=== PATIENT | female | born 1960 | race Caucasian/White ===

== ENCOUNTER 2019-03-03 12:34 | Emergency (ER) | payer MEDICARE ==
[2019-03-03] MEDS ORDERED: DIAZEPAM 5 MG TABLET ONE (13:01)
[2019-03-03] MEDS ORDERED: LIDOCAINE 5% TOPICAL PATCH TP ONE (13:01)
[2019-03-03] MEDS ORDERED: KETOROLAC TROMETHAMINE 60 MG/2 ML VIAL ONE (13:01)
== END 2019-03-03 14:46 | disposition home or self-care (01) ==
LOC: EDH 12:34
DX: S39.012A Strain of muscle, fascia and tendon of lower back, initial encounter (principal); E11.9 Type 2 diabetes mellitus without complications; F32.9 Major depressive disorder, single episode, unspecified; L93.0 Discoid lupus erythematosus; Z88.8 Allergy status to other drugs, medicaments and biological substances; X50.0XXA Overexertion from strenuous movement or load, initial encounter; Y93.89 Activity, other specified; Y92.89 Other specified places as the place of occurrence of the external cause; Y99.8 Other external cause status
CPT/HCPCS: 96372; 99283; J1885

== ENCOUNTER 2019-03-06 10:41 | Emergency (ER) | payer OTHER, MEDICARE | END 2019-03-06 11:11 | disposition home or self-care (01) | LOC: EDH 10:41 | DX: M54.16 Radiculopathy, lumbar region (principal); M25.562 Pain in left knee; F32.9 Major depressive disorder, single episode, unspecified; Z90.49 Acquired absence of other specified parts of digestive tract; Z90.710 Acquired absence of both cervix and uterus; Z98.890 Other specified postprocedural states; Z88.8 Allergy status to other drugs, medicaments and biological substances ==

== ENCOUNTER 2019-03-19 23:16 | Emergency (ER) | payer OTHER, MEDICARE ==
[2019-03-20] MEDS ORDERED: FAMOTIDINE 20MG TAB 20 MG TAB ONE (00:21)
[2019-03-20] MEDS ORDERED: KETOROLAC TROMETHAMINE 60 MG/2 ML VIAL ONE (00:22)
[2019-03-20] MEDS ORDERED: PREDNISONE 20 MG TABLET ONE (00:22)
[2019-03-20] MEDS ORDERED: LIDOCAINE 5% TOPICAL PATCH TP ONE (00:22)
[2019-03-20] MEDS ORDERED: ORPHENADRINE CITRATE 30 MG/ML ML ONE (00:22)
== END 2019-03-20 01:37 | disposition home or self-care (01) ==
LOC: EDH 23:16
DX: M62.830 Muscle spasm of back (principal); M25.511 Pain in right shoulder; E11.9 Type 2 diabetes mellitus without complications; F32.9 Major depressive disorder, single episode, unspecified; Z90.49 Acquired absence of other specified parts of digestive tract; Z90.710 Acquired absence of both cervix and uterus; Z72.0 Tobacco use; Z88.8 Allergy status to other drugs, medicaments and biological substances; Z79.899 Other long term (current) drug therapy
CPT/HCPCS: 93005; 96372 ×2; 99284; J1885; J2360

== ENCOUNTER 2019-04-02 18:45 | Emergency (ER) | payer OTHER, MEDICARE ==
[2019-04-02 19:34] LABS: BASOPHILS % (AUTO) 0.6 % (0.0-5.0); EOSINOPHILS % (AUTO) 2.1 % (0.0-8.0); HEMATOCRIT 38.7 % (36-48); LYMPHOCYTES % (AUTO) 25.5 % (21.0-51.0); MEAN CORPUSCULAR HEMOGLOBIN 30.6 pg (27.0-33.0); MEAN CORPUSCULAR HGB CONC 32.8 g/dL (32.0-36.0); MEAN CORPUSCULAR VOLUME 93.3 fL (79-99); MONOCYTES % (AUTO) 5.8 % (3.0-13.0); NEUTROPHILS % (AUTO) 65.7 % (40.0-77.0); PLATELET COUNT (AUTO) 307 K/uL (130-400); RED BLOOD CELL COUNT(AUTO) 4.15 MIL/uL (4.00-5.50); RED CELL DISTRIBUTION WIDTH 13.1 % (11.0-15.5); WHITE BLOOD COUNT (AUTO) 11.5 K/uL (4.8-10.8)
[2019-04-02 19:36] LABS: CREATININE 0.8 mg/dL (0.5-1.5); POTASSIUM 3.7 mmol/L (3.5-5.1)
[2019-04-02] MEDS ORDERED: ONDANSETRON HCL 4 MG/2 ML VIAL ONE (19:36)
[2019-04-02] MEDS ORDERED: MORPHINE SULFATE 4 MG/1ML SYG ONE (19:36)
[2019-04-02 19:40] LABS: ALBUMIN 4.2 g/dL (3.5-5.0); BILIRUBIN,TOTAL 0.2 mg/dL (0.2-1.0); TOTAL PROTEIN, SERUM 7.5 g/dL (6.0-8.3)
[2019-04-02 19:56] LABS: APPEARANCE,URINE Clear (CLEAR); BILIRUBIN,URINE Negative (NEGATIVE); COLOR,URINE Yellow (YELLOW); GLUCOSE, URINE (UA) Negative (NEGATIVE); KETONES,URINE 15 mg/dL (NEGATIVE); LEUKOCYTE ESTERASE ,URINE Small (NEGATIVE); NITRATE,URINE Negative (NEGATIVE); OCCULT BLOOD,URINE Negative (NEGATIVE); PROTEIN,URINE Negative (NEGATIVE); UROBILINOGEN,URINE 0.2 mg/dL (0.2-1.0)
[2019-04-02 20:05] LABS: AMPHET/METH SCREEN,URINE POSITIVE (NEGATIVE); BARBITURATE SCREEN, URINE NEGATIVE (NEGATIVE); BENZODIAZEPINES SCREEN,URINE NEGATIVE (NEGATIVE); CANNABINOID SCREEN,URINE NEGATIVE (NEGATIVE); COCAINE SCREEN,URINE NEGATIVE (NEGATIVE); OPIATE SCREEN,URINE NEGATIVE (NEGATIVE); PHENCYCLIDINE SCREEN,URINE NEGATIVE (NEGATIVE)
[2019-04-02 20:06] LABS: BACTERIA,URINE Many /HPF (None Seen); RBC,URINE None Seen /HPF (0-1)
== END 2019-04-02 20:58 | disposition home or self-care (01) ==
LOC: EDH 18:45
DX: S39.011A Strain of muscle, fascia and tendon of abdomen, initial encounter (principal); M54.5 Low back pain; E11.9 Type 2 diabetes mellitus without complications; F32.9 Major depressive disorder, single episode, unspecified; M32.9 Systemic lupus erythematosus, unspecified; Z90.49 Acquired absence of other specified parts of digestive tract; Z90.710 Acquired absence of both cervix and uterus; Z88.1 Allergy status to other antibiotic agents; Z88.8 Allergy status to other drugs, medicaments and biological substances; X50.0XXA Overexertion from strenuous movement or load, initial encounter; Y93.89 Activity, other specified; Y92.89 Other specified places as the place of occurrence of the external cause; Y99.8 Other external cause status
CPT/HCPCS: 36415; 74176; 80053; 80305; 81001; 83690; 85025; 96374; 96375; 99285; J2270; J2405

== ENCOUNTER 2020-08-16 13:27 | Emergency (ER) | payer OTHER, MEDICARE ==
[2020-08-16] MEDS ORDERED: KETOROLAC TROMETHAMINE 30MG/ML ONE (14:01)
[2020-08-16] MEDS ORDERED: DEXAMETHASONE SOD PHOSPHATE 10MG/ML 1ML VIAL ONE (14:01)
[2020-08-16] MEDS ORDERED: HYDROCODONE/ACETAMINOPHEN 5/325 MG TAB ONE (14:01)
== END 2020-08-16 14:21 | disposition home or self-care (01) ==
LOC: EDH 13:27
DX: M54.5 Low back pain (principal); Z88.1 Allergy status to other antibiotic agents; Z88.8 Allergy status to other drugs, medicaments and biological substances; Z72.0 Tobacco use
CPT/HCPCS: 96372 ×2; 99284; J1100; J1885

== ENCOUNTER 2020-09-02 02:12 | Emergency (ER) | payer OTHER, MEDICARE ==
[~2020-09-02 02:12] MED LIST: CEPH500B PO; FLUC100T8 PO; METF-444 PO; METR500T PO; ORPH-43 PO
[2020-09-02] MEDS ORDERED: CLINDAMYCIN HCL 150 MG CAP ONE (02:56)
== END 2020-09-02 03:02 | disposition home or self-care (01) ==
LOC: EDH 02:12
DX: L02.91 Cutaneous abscess, unspecified (principal); E11.9 Type 2 diabetes mellitus without complications; Z90.49 Acquired absence of other specified parts of digestive tract; Z90.710 Acquired absence of both cervix and uterus; Z98.890 Other specified postprocedural states; Z88.1 Allergy status to other antibiotic agents
CPT/HCPCS: 87070; 87076

== ENCOUNTER 2020-10-25 07:05 | Emergency (ER) | payer OTHER, MEDICARE ==
[~2020-10-25] VITALS: Ht 167.6 cm; Wt 77.1 kg
[2020-10-25 07:07] VITALS: BP 137/79
[2020-10-25 08:10] LABS: BASOPHILS % (AUTO) 0.9 % (0.0-5.0); EOSINOPHILS % (AUTO) 2.9 % (0.0-8.0); HEMATOCRIT 41.9 % (36-48); LYMPHOCYTES % (AUTO) 21.7 % (21.0-51.0); MEAN CORPUSCULAR HEMOGLOBIN 31.5 pg (27.0-33.0); MEAN CORPUSCULAR HGB CONC 32.9 g/dL (32.0-36.0); MEAN CORPUSCULAR VOLUME 95.7 fL (79-99); MONOCYTES % (AUTO) 6.2 % (3.0-13.0); PLATELET COUNT (AUTO) 295 K/uL (130-400); RED BLOOD CELL COUNT(AUTO) 4.38 MIL/uL (4.00-5.50); RED CELL DISTRIBUTION WIDTH 13.2 % (11.0-15.5); WHITE BLOOD COUNT (AUTO) 9.8 K/uL (4.8-10.8)
[2020-10-25 08:20] LABS: AMPHET/METH SCREEN,URINE NEGATIVE (NEGATIVE); BARBITURATE SCREEN, URINE NEGATIVE (NEGATIVE); BENZODIAZEPINES SCREEN,URINE NEGATIVE (NEGATIVE); CANNABINOID SCREEN,URINE NEGATIVE (NEGATIVE); COCAINE SCREEN,URINE NEGATIVE (NEGATIVE); OPIATE SCREEN,URINE NEGATIVE (NEGATIVE); PHENCYCLIDINE SCREEN,URINE NEGATIVE (NEGATIVE)
[2020-10-25 08:29] LABS: ALBUMIN 3.7 g/dL (3.5-5.0); BILIRUBIN,TOTAL 0.2 mg/dL (0.2-1.0); CREATININE 0.8 mg/dL (0.5-1.5); MAGNESIUM 2.1 mg/dL (1.80-2.40); POTASSIUM 3.9 mmol/L (3.5-5.1); TOTAL PROTEIN, SERUM 7.4 g/dL (6.0-8.3)
[2020-10-25] MEDS ORDERED: FLUCONAZOLE 100 MG TAB PO SCH (09:30)
[2020-10-25 09:55] VITALS: BP 135/79
[2020-10-25] MEDS ORDERED: FLUC150T PO (10:11)
== END 2020-10-25 10:14 | disposition home or self-care (01) ==
LOC: EDH 07:05
DX: M94.0 Chondrocostal junction syndrome [Tietze] (principal); B37.0 Candidal stomatitis; E11.9 Type 2 diabetes mellitus without complications; F41.9 Anxiety disorder, unspecified; Z79.84 Long term (current) use of oral hypoglycemic drugs; Z88.1 Allergy status to other antibiotic agents
CPT/HCPCS: 36415; 71045; 80053; 80305; 83735; 84484; 85025; 93005

== ENCOUNTER 2020-12-09 13:48 | Emergency (ER) | payer OTHER, MEDICARE ==
[~2020-12-09 13:48] MED LIST changes: +FLUC150T PO
== END 2020-12-09 13:50 | disposition left against medical advice (07) ==
LOC: EDH 13:48
DX: M54.9 Dorsalgia, unspecified (principal); Z53.21 Procedure and treatment not carried out due to patient leaving prior to being seen by health care provider

== ENCOUNTER 2021-01-25 12:11 | Observation (INO) | payer OTHER, MEDICARE ==
[~2021-01-25] VITALS: Ht 165.1 cm; Wt 72.6 kg
[2021-01-25] MEDS ORDERED: NITROGLYCERIN 1GM OINT 1 INCH/1GM TD SCH (13:00)
[2021-01-25 13:01] LABS: BASOPHILS % (AUTO) 0.8 % (0.0-5.0); EOSINOPHILS % (AUTO) 2.7 % (0.0-8.0); HEMATOCRIT 40.8 % (36-48); LYMPHOCYTES % (AUTO) 23.5 % (21.0-51.0); MEAN CORPUSCULAR HEMOGLOBIN 31.8 pg (27.0-33.0); MEAN CORPUSCULAR HGB CONC 34.3 g/dL (32.0-36.0); MEAN CORPUSCULAR VOLUME 92.7 fL (79-99); MONOCYTES % (AUTO) 6.7 % (3.0-13.0); NEUTROPHILS % (AUTO) 65.9 % (40.0-77.0); PLATELET COUNT (AUTO) 319 K/uL (130-400); RED CELL DISTRIBUTION WIDTH 13.2 % (11.0-15.5); WHITE BLOOD COUNT (AUTO) 9.8 K/uL (4.8-10.8)
[2021-01-25 13:10] LABS: CREATININE 0.9 mg/dL (0.5-1.5); POTASSIUM 4.4 mmol/L (3.5-5.1)
[2021-01-25 13:15] LABS: ALBUMIN 3.9 g/dL (3.5-5.0); BILIRUBIN,TOTAL 0.1 mg/dL (0.2-1.0); TOTAL PROTEIN, SERUM 7.7 g/dL (6.0-8.3)
[2021-01-25 13:24] LABS: APPEARANCE,URINE Cloudy (CLEAR); BILIRUBIN,URINE Negative (NEGATIVE); COLOR,URINE Yellow (YELLOW); GLUCOSE, URINE (UA) Negative (NEGATIVE); KETONES,URINE Negative (NEGATIVE); LEUKOCYTE ESTERASE ,URINE Negative (NEGATIVE); NITRATE,URINE Negative (NEGATIVE); OCCULT BLOOD,URINE Negative (NEGATIVE); PH,URINE 6.5 (5.0-8.0); PROTEIN,URINE Negative (NEGATIVE); UROBILINOGEN,URINE 0.2 mg/dL (0.2-1.0)
[2021-01-25 13:59] LABS: BACTERIA,URINE Rare /HPF (None Seen); MUCUS,URINE Rare LPF (None Seen); RBC,URINE 0-1 /HPF (0-1); SQUAMOUS EPITHELIAL CELL,UR Moderate /HPF (0-2); WBC,URINE 0-1 /HPF (0-1)
[2021-01-25] MEDS: NITROGLYCERIN 1GM OINT 1 INCH/1GM TD SCH ×2 (14:30→20:20)
[2021-01-25] MEDS ORDERED: DIPHENHYDRAMINE HCL 25 MG CAPSULE PO PRN (14:30)
[2021-01-25] MEDS ORDERED: ACETAMINOPHEN WITH CODEINE 1 TAB TAB PO PRN (14:30)
[2021-01-25] MEDS ORDERED: ACETAMINOPHEN 325 MG TAB PO PRN ×2 (14:30)
[2021-01-25] MEDS ORDERED: ZOLPIDEM TARTRATE 5 MG TAB PO PRN (14:30)
[2021-01-25] MEDS ORDERED: NITROGLYCERIN 0.4 MG SL TAB SL PRN (14:30)
[2021-01-25] MEDS ORDERED: DiphenhydrAMINE HCL 50 MG/ML VIAL IV PRN (14:30)
[2021-01-25 14:59] LABS: CREATINE KINASE, TOTAL 28 U/L (21-232); MYOGLOBIN 16 ng/mL (10-92)
[2021-01-25 16:36] VITALS: BP 124/69
[2021-01-25] MEDS: ONDANSETRON 4MG INJ IV PRN ×2 (16:49→18:17)
[2021-01-25] MEDS: METOPROLOL SUCCINATE 50 MG TAB.SR.24H PO SCH (17:22)
[2021-01-25] MEDS ORDERED: PRASUGREL HCL 10 MG TABLET PO SCH (18:00)
[2021-01-25] MEDS ORDERED: ASPIRIN 325MG EC TAB PO ONE (18:00)
[2021-01-25] MEDS: METOPROLOL TARTRATE 25 MG TAB PO SCH (19:30)
[2021-01-25 19:55] VITALS: BP 120/78
[2021-01-25] MEDS: FAMOTIDINE 20MG TAB PO SCH (20:19)
[2021-01-25 23:33] VITALS: BP 94/60
[2021-01-26] VITALS (11 sets, daily range): BP systolic 90–128; BP diastolic 41–62
[2021-01-26] MEDS ORDERED: MORPHINE 2 MG SYG ONE (00:40)
[2021-01-26] MEDS ORDERED: MORPHINE 2 MG SYG IVP ONE (01:00)
[2021-01-26 04:41] LABS: EOSINOPHILS % (AUTO) 3.7 % (0.0-8.0); HEMATOCRIT 38.1 % (36-48); LYMPHOCYTES % (AUTO) 35.1 % (21.0-51.0); MEAN CORPUSCULAR HEMOGLOBIN 31.4 pg (27.0-33.0); MEAN CORPUSCULAR HGB CONC 33.3 g/dL (32.0-36.0); MEAN CORPUSCULAR VOLUME 94.3 fL (79-99); MONOCYTES % (AUTO) 7.6 % (3.0-13.0); NEUTROPHILS % (AUTO) 52.1 % (40.0-77.0); PLATELET COUNT (AUTO) 308 K/uL (130-400); RED BLOOD CELL COUNT(AUTO) 4.04 MIL/uL (4.00-5.50); RED CELL DISTRIBUTION WIDTH 13.3 % (11.0-15.5); WHITE BLOOD COUNT (AUTO) 11.1 K/uL (4.8-10.8)
[2021-01-26 04:57] LABS: INR 1.01 (0.85-1.15)
[2021-01-26 04:59] LABS: PARTIAL THROMBOPLASTIN TIME 27.3 SEC (26.3-35.5)
[2021-01-26 05:09] LABS: ALBUMIN 3.4 g/dL (3.5-5.0); BILIRUBIN,TOTAL 0.2 mg/dL (0.2-1.0); CREATININE 0.9 mg/dL (0.5-1.5); POTASSIUM 4.3 mmol/L (3.5-5.1); TOTAL PROTEIN, SERUM 6.7 g/dL (6.0-8.3)
[2021-01-26] MEDS: NITROGLYCERIN 1GM OINT 1 INCH/1GM TD SCH ×3 (05:58→22:30)
[2021-01-26] MEDS: PRASUGREL HCL 10 MG TABLET PO SCH (09:13)
[2021-01-26] MEDS: ASPIRIN 81 MG EC TAB PO SCH (09:13)
[2021-01-26] MEDS: METOPROLOL SUCCINATE 50 MG TAB.SR.24H PO SCH (09:13)
[2021-01-26] MEDS: FAMOTIDINE 20MG TAB PO SCH ×2 (09:14→20:26)
[2021-01-26] MEDS: ENOXAPARIN SODIUM 30 MG/0.3 ML SQ SCH (09:14)
[2021-01-26] MEDS: METOPROLOL TARTRATE 25 MG TAB PO SCH ×2 (09:14→20:22)
[2021-01-26] MEDS ORDERED: BIVALIRUDIN 250 MG/VIAL IV ONE (14:22)
[2021-01-26] MEDS ORDERED: IOHEXOL 350 MG/ML 100ML INFUS..BTL IV ONE (14:22)
[2021-01-26] MEDS ORDERED: NITROGLYCERIN 2 MG VIAL IV ONE (14:22)
[2021-01-26] MEDS ORDERED: LIDOCAINE HCL 400MG/20ML VIAL ONE (14:22)
[2021-01-26] MEDS ORDERED: IOHEXOL-350 50ML VIAL IV ONE (14:22)
[2021-01-26] MEDS ORDERED: SODIUM BICARB 50MEQ 50ML VIAL 50 ML ONE (15:07)
[2021-01-26] MEDS ORDERED: MIDAZOLAM HCL 1 MG/ML 2ML VIAL ONE (15:19)
[2021-01-26] MEDS ORDERED: FENTANYL CITRATE PF 50 MCG/1 ML 2ML VIAL ONE (15:19)
[2021-01-26] MEDS ORDERED: 0.9%NACL 1000ML 1,000 ML IV SCH (16:30)
[2021-01-27 00:04] VITALS: BP 98/47
[2021-01-27 04:04] VITALS: BP 96/52
[2021-01-27] MEDS: NITROGLYCERIN 1GM OINT 1 INCH/1GM TD SCH (04:08)
[2021-01-27 05:30] LABS: BASOPHILS % (AUTO) 1.1 % (0.0-5.0); LYMPHOCYTES % (AUTO) 25.2 % (21.0-51.0); MEAN CORPUSCULAR HEMOGLOBIN 32.2 pg (27.0-33.0); MEAN CORPUSCULAR HGB CONC 33.2 g/dL (32.0-36.0); MEAN CORPUSCULAR VOLUME 97.2 fL (79-99); MONOCYTES % (AUTO) 7.2 % (3.0-13.0); NEUTROPHILS % (AUTO) 63.2 % (40.0-77.0); PLATELET COUNT (AUTO) 258 K/uL (130-400); RED BLOOD CELL COUNT(AUTO) 3.91 MIL/uL (4.00-5.50); RED CELL DISTRIBUTION WIDTH 13.3 % (11.0-15.5); WHITE BLOOD COUNT (AUTO) 9.7 K/uL (4.8-10.8)
[2021-01-27 05:48] LABS: CREATININE 0.7 mg/dL (0.5-1.5); POTASSIUM 3.8 mmol/L (3.5-5.1)
[2021-01-27] MEDS ORDERED: ASPI-1005 PO (07:07)
[2021-01-27] MEDS ORDERED: METO-408 PO (07:07)
[2021-01-27 07:57] VITALS: BP 107/45
[2021-01-27] MEDS: METOPROLOL SUCCINATE 50 MG TAB.SR.24H PO SCH (09:00)
[2021-01-27] MEDS: PRASUGREL HCL 10 MG TABLET PO SCH (10:01)
[2021-01-27] MEDS: FAMOTIDINE 20MG TAB PO SCH (10:01)
[2021-01-27] MEDS: METOPROLOL TARTRATE 25 MG TAB PO SCH (10:02)
[2021-01-27] MEDS: ASPIRIN 81 MG EC TAB PO SCH (10:05)
[2021-01-27] MEDS: ENOXAPARIN SODIUM 30 MG/0.3 ML SQ SCH (10:05)
== END 2021-01-27 12:59 | disposition home or self-care (01) ==
LOC: EDH 12:11 → EDHIP 14:06 → 3AH 15:45
PROVIDERS: ADMIT Internal Medicine; ATTEND Internal Medicine
DX: I24.9 Acute ischemic heart disease, unspecified (principal); Z20.822 Contact with and (suspected) exposure to COVID-19; I10 Essential (primary) hypertension; E11.9 Type 2 diabetes mellitus without complications; E78.5 Hyperlipidemia, unspecified; E78.00 Pure hypercholesterolemia, unspecified; R11.2 Nausea with vomiting, unspecified; R61 Generalized hyperhidrosis; R07.89 Other chest pain; F17.210 Nicotine dependence, cigarettes, uncomplicated; Z79.84 Long term (current) use of oral hypoglycemic drugs; Z90.710 Acquired absence of both cervix and uterus; Z98.891 History of uterine scar from previous surgery; Z79.899 Other long term (current) drug therapy; Z98.890 Other specified postprocedural states; Z79.82 Long term (current) use of aspirin; Z90.49 Acquired absence of other specified parts of digestive tract
CPT/HCPCS: 36415 ×3; 71045; 80048; 80053 ×2; 80061; 81001; 82550 ×3; 82948 ×6; 83036; 83735; 83874 ×3; 83880; 84484 ×4; 85025 ×3; 85610; 85730; 87635; 93005 ×4; 93458; 96361; 96372 ×2; 96374; 96376; 99285; C1760; C1894 ×2; G0378 ×44; J1644; J1650 ×2; J2250; J2405; J3010; J3490 ×3; Q9965; Q9967 ×2; 99156; 99157; J0583

== ENCOUNTER 2021-02-06 09:06 | Emergency (ER) | payer OTHER, MEDICARE ==
[~2021-02-06] VITALS: Ht 165.1 cm; Wt 72.6 kg
[~2021-02-06 09:06] MED LIST changes: +ASPI-1005 PO; -CEPH500B PO; -FLUC100T8 PO; -FLUC150T PO; +METO-408 PO; -METR500T PO
[2021-02-06] MEDS ORDERED: TRAMADOL HCL 50 MG TABLET PO ONE (09:30)
[2021-02-06 09:44] VITALS: BP 126/75
[2021-02-06 09:52] LABS: HEMATOCRIT 37.6 % (36-48); MEAN CORPUSCULAR HEMOGLOBIN 31.7 pg (27.0-33.0); MEAN CORPUSCULAR HGB CONC 33.8 g/dL (32.0-36.0); MEAN CORPUSCULAR VOLUME 93.8 fL (79-99); PLATELET COUNT (AUTO) 289 K/uL (130-400); RED BLOOD CELL COUNT(AUTO) 4.01 MIL/uL (4.00-5.50); RED CELL DISTRIBUTION WIDTH 13.5 % (11.0-15.5); WHITE BLOOD COUNT (AUTO) 8.9 K/uL (4.8-10.8)
[2021-02-06 10:00] LABS: CREATININE 0.9 mg/dL (0.5-1.5); POTASSIUM 4.5 mmol/L (3.5-5.1)
[2021-02-06] MEDS ORDERED: IBUP-2077 PO (10:47)
[2021-02-06] MEDS ORDERED: CEPH500B PO (10:47)
[2021-02-06 11:10] LABS: BASOPHILS % (MANUAL) 3 % (0-2); EOSINOPHILS % (MANUAL) 4 % (1-6); LYMPHOCYTES % (MANUAL) 40 % (22-44); MAN.DIFF COMMENT-IMPRESSION MANUAL DIFFERENTIAL; MONOCYTES % (MANUAL) 6 % (2-9); PLATELET MORPHOLOGY COMMENT ADEQUATE; REACTIVE LYMPHOCYTES 2 % (0-0); SEGMENTED NEUTROPHILS % 45 % (40-70)
== END 2021-02-06 10:55 | disposition home or self-care (01) ==
LOC: EDH 09:06
DX: R10.30 Lower abdominal pain, unspecified (principal); E11.9 Type 2 diabetes mellitus without complications; I72.4 Aneurysm of artery of lower extremity; L02.91 Cutaneous abscess, unspecified; I10 Essential (primary) hypertension; F17.200 Nicotine dependence, unspecified, uncomplicated; Z79.1 Long term (current) use of non-steroidal anti-inflammatories (NSAID); Z79.82 Long term (current) use of aspirin; Z79.84 Long term (current) use of oral hypoglycemic drugs; Z79.899 Other long term (current) drug therapy
CPT/HCPCS: 36415; 76882; 80048; 85025

== ENCOUNTER 2021-06-13 08:20 | Emergency (ER) | payer OTHER, MEDICARE ==
[~2021-06-13] VITALS: Ht 167.6 cm; Wt 77.1 kg
[~2021-06-13 08:20] MED LIST changes: +CEPH500B PO; +IBUP-2077 PO
[2021-06-13 08:39] LABS: APPEARANCE,URINE CLEAR (CLEAR); BILIRUBIN,URINE NEGATIVE (NEGATIVE); COLOR,URINE YELLOW (YELLOW); GLUCOSE, URINE (UA) 250 mg/dL (NEGATIVE); KETONES,URINE NEGATIVE (NEGATIVE); LEUKOCYTE ESTERASE ,URINE NEGATIVE (NEGATIVE); NITRATE,URINE NEGATIVE (NEGATIVE); OCCULT BLOOD,URINE NEGATIVE (NEGATIVE); PROTEIN,URINE NEGATIVE (NEGATIVE); UROBILINOGEN,URINE 0.2 mg/dL (0.2-1.0)
[2021-06-13 08:46] LABS: BASOPHILS % (AUTO) 0.3 % (0.0-5.0); EOSINOPHILS % (AUTO) 0.3 % (0.0-8.0); HEMATOCRIT 41.9 % (36-48); LYMPHOCYTES % (AUTO) 17.8 % (21.0-51.0); MEAN CORPUSCULAR HEMOGLOBIN 31.5 pg (27.0-33.0); MEAN CORPUSCULAR HGB CONC 33.7 g/dL (32.0-36.0); MEAN CORPUSCULAR VOLUME 93.5 fL (79-99); MONOCYTES % (AUTO) 5.5 % (3.0-13.0); NEUTROPHILS % (AUTO) 75.7 % (40.0-77.0); PLATELET COUNT (AUTO) 303 K/uL (130-400); RED BLOOD CELL COUNT(AUTO) 4.48 MIL/uL (4.00-5.50); RED CELL DISTRIBUTION WIDTH 13.2 % (11.0-15.5); WHITE BLOOD COUNT (AUTO) 16.6 K/uL (4.8-10.8)
[2021-06-13 09:01] LABS: BILIRUBIN,TOTAL 0.2 mg/dL (0.2-1.0); CREATININE 0.6 mg/dL (0.5-1.5); TOTAL PROTEIN, SERUM 7.6 g/dL (6.0-8.3)
[2021-06-13 09:06] LABS: BACTERIA,URINE Rare /HPF (None Seen); RBC,URINE 0-1 /HPF (0-1); SQUAMOUS EPITHELIAL CELL,UR Few /HPF (0-2); WBC,URINE 0-1 /HPF (0-1)
[2021-06-13] MEDS ORDERED: DIAZEPAM 5 MG/ML 2 ML SYG ONE (11:30)
[2021-06-13] MEDS ORDERED: DIAZEPAM 5 MG/ML 2 ML SYG IVP SCH (11:30)
[2021-06-13] MEDS ORDERED: MORPHINE 4 MG SYG ONE (13:11)
[2021-06-13] MEDS ORDERED: MORPHINE 4 MG SYG IV SCH (13:30)
[2021-06-13 16:49] VITALS: BP 113/57
== END 2021-06-13 18:23 | disposition home or self-care (01) ==
LOC: EDH 08:20
DX: M48.061 Spinal stenosis, lumbar region without neurogenic claudication (principal); K59.00 Constipation, unspecified; E11.9 Type 2 diabetes mellitus without complications; F17.200 Nicotine dependence, unspecified, uncomplicated; Z79.1 Long term (current) use of non-steroidal anti-inflammatories (NSAID); Z79.4 Long term (current) use of insulin; Z79.82 Long term (current) use of aspirin; Z79.84 Long term (current) use of oral hypoglycemic drugs; Z79.899 Other long term (current) drug therapy; Z90.49 Acquired absence of other specified parts of digestive tract
CPT/HCPCS: 36415; 72141; 72146; 72148; 74018; 80053; 81001; 82270; 85025; 96374; 96375; 99285; J2270; J3360

== ENCOUNTER 2021-07-10 13:34 | Emergency (ER) | payer OTHER, MEDICARE ==
[~2021-07-10] VITALS: Ht 167.6 cm; Wt 75.3 kg
[2021-07-10 13:57] LABS: BASOPHILS % (AUTO) 0.9 % (0.0-5.0); EOSINOPHILS % (AUTO) 2.5 % (0.0-8.0); LYMPHOCYTES % (AUTO) 22.2 % (21.0-51.0); MEAN CORPUSCULAR HEMOGLOBIN 31.8 pg (27.0-33.0); MEAN CORPUSCULAR HGB CONC 33.8 g/dL (32.0-36.0); MONOCYTES % (AUTO) 6.8 % (3.0-13.0); NEUTROPHILS % (AUTO) 67.3 % (40.0-77.0); PLATELET COUNT (AUTO) 296 K/uL (130-400); RED BLOOD CELL COUNT(AUTO) 4.15 MIL/uL (4.00-5.50); RED CELL DISTRIBUTION WIDTH 13.9 % (11.0-15.5); WHITE BLOOD COUNT (AUTO) 9.8 K/uL (4.8-10.8)
[2021-07-10 14:04] LABS: CREATININE 0.7 mg/dL (0.5-1.5); POTASSIUM 3.9 mmol/L (3.5-5.1)
[2021-07-10 14:05] LABS: APPEARANCE,URINE Cloudy (CLEAR); BILIRUBIN,URINE Negative (NEGATIVE); COLOR,URINE Yellow (YELLOW); GLUCOSE, URINE (UA) 250 mg/dL (NEGATIVE); KETONES,URINE Trace mg/dL (NEGATIVE); LEUKOCYTE ESTERASE ,URINE Trace (NEGATIVE); NITRATE,URINE Negative (NEGATIVE); OCCULT BLOOD,URINE Nonhemolyzed Trace (NEGATIVE); PH,URINE 5.5 (5.0-8.0); PROTEIN,URINE Negative (NEGATIVE)
[2021-07-10 14:09] LABS: ALBUMIN 4.1 g/dL (3.5-5.0); BILIRUBIN,TOTAL 0.2 mg/dL (0.2-1.0); TOTAL PROTEIN, SERUM 7.1 g/dL (6.0-8.3)
[2021-07-10] MEDS ORDERED: ONDANSETRON 4MG INJ IVP ONE (15:30)
[2021-07-10] MEDS ORDERED: MORPHINE 2 MG SYG IM ONE (15:30)
[2021-07-10] MEDS ORDERED: MORPHINE 2 MG SYG IVP ONE (16:00)
[2021-07-10 19:55] VITALS: BP 112/58
== END 2021-07-10 19:59 | disposition home or self-care (01) ==
LOC: EDH 13:34
DX: K57.30 Diverticulosis of large intestine without perforation or abscess without bleeding (principal); N39.8 Other specified disorders of urinary system; E11.65 Type 2 diabetes mellitus with hyperglycemia; K21.9 Gastro-esophageal reflux disease without esophagitis; F17.200 Nicotine dependence, unspecified, uncomplicated; Z79.1 Long term (current) use of non-steroidal anti-inflammatories (NSAID); Z79.82 Long term (current) use of aspirin; Z79.84 Long term (current) use of oral hypoglycemic drugs; Z79.899 Other long term (current) drug therapy; Z90.49 Acquired absence of other specified parts of digestive tract
CPT/HCPCS: 36415; 74176; 80053; 81003; 82948; 85025; 87088; 96374; 96375; 99284; J2405

== ENCOUNTER 2021-07-20 13:46 | Inpatient (IN) | payer OTHER, MEDICARE ==
[~2021-07-20] VITALS: Ht 167.6 cm; Wt 76.2 kg
[2021-07-20 14:22] LABS: BASOPHILS % (AUTO) 0.9 % (0.0-5.0); EOSINOPHILS % (AUTO) 2.9 % (0.0-8.0); HEMATOCRIT 39.2 % (36-48); LYMPHOCYTES % (AUTO) 25.7 % (21.0-51.0); MEAN CORPUSCULAR HEMOGLOBIN 31.3 pg (27.0-33.0); MEAN CORPUSCULAR HGB CONC 33.7 g/dL (32.0-36.0); MEAN CORPUSCULAR VOLUME 92.9 fL (79-99); MONOCYTES % (AUTO) 6.2 % (3.0-13.0); PLATELET COUNT (AUTO) 280 K/uL (130-400); RED BLOOD CELL COUNT(AUTO) 4.22 MIL/uL (4.00-5.50); RED CELL DISTRIBUTION WIDTH 13.6 % (11.0-15.5)
[2021-07-20 14:28] LABS: APPEARANCE,URINE CLOUDY (CLEAR); BILIRUBIN,URINE NEGATIVE (NEGATIVE); COLOR,URINE YELLOW (YELLOW); GLUCOSE, URINE (UA) NEGATIVE (NEGATIVE); KETONES,URINE NEGATIVE (NEGATIVE); LEUKOCYTE ESTERASE ,URINE NEGATIVE (NEGATIVE); NITRATE,URINE NEGATIVE (NEGATIVE); OCCULT BLOOD,URINE NEGATIVE (NEGATIVE); PH,URINE 7.5 (5.0-8.0); PROTEIN,URINE NEGATIVE (NEGATIVE); UROBILINOGEN,URINE 0.2 mg/dL (0.2-1.0)
[2021-07-20 14:30] LABS: CREATININE 0.6 mg/dL (0.5-1.5); POTASSIUM 3.7 mmol/L (3.5-5.1)
[2021-07-20] MEDS ORDERED: 0.9%NACL 1000ML 1,000 ML IV ONE (14:30)
[2021-07-20] MEDS ORDERED: FAMOTIDINE 20MG VIAL IV ONE (14:30)
[2021-07-20] MEDS ORDERED: MORPHINE 4 MG SYG IVP ONE ×2 (14:30→17:00)
[2021-07-20] MEDS ORDERED: ONDANSETRON 4MG INJ IVP ONE ×2 (14:30→17:00)
[2021-07-20 14:35] LABS: ALBUMIN 3.7 g/dL (3.5-5.0); BILIRUBIN,TOTAL 0.2 mg/dL (0.2-1.0)
[2021-07-20 14:40] LABS: AMORPHOUS SEDIMENT,UR Moderate /LPF (None Seen); BACTERIA,URINE Few /HPF (None Seen); RBC,URINE 0-1 /HPF (0-1); SQUAMOUS EPITHELIAL CELL,UR Rare /HPF (0-2); WBC,URINE 0-1 /HPF (0-1)
[2021-07-20] MEDS ORDERED: MAG/ALUM/SIMETH 30 ML UDCUP PO ONE (15:00)
[2021-07-20] MEDS ORDERED: IOHEXOL-350 75 ML VIAL IV ONE (15:12)
[2021-07-20] MEDS ORDERED: MAG/ALUM/SIMETH 30 ML UDCUP ONE (16:15)
[2021-07-20] MEDS ORDERED: ONDANSETRON 4MG INJ ONE (17:22)
[2021-07-20] MEDS ORDERED: MORPHINE 4 MG SYG ONE (17:22)
[2021-07-20] MEDS ORDERED: METF-446 PO (17:29)
[2021-07-20] MEDS ORDERED: METF-444 PO (17:29)
[2021-07-20] MEDS ORDERED: LACTATED RINGERS 1000ML 1,000 ML IV ONE (19:00)
[2021-07-20] MEDS: MORPHINE 2 MG SYG IVP PRN (19:21)
[2021-07-20 22:45] VITALS: BP 96/50
[2021-07-21 03:54] VITALS: BP 111/55
[2021-07-21] MEDS: MORPHINE 2 MG SYG IVP PRN ×2 (03:55→11:35)
[2021-07-21 04:01] LABS: EOSINOPHILS % (AUTO) 3.8 % (0.0-8.0); HEMATOCRIT 36.2 % (36-48); LYMPHOCYTES % (AUTO) 28.9 % (21.0-51.0); MEAN CORPUSCULAR HEMOGLOBIN 30.6 pg (27.0-33.0); MEAN CORPUSCULAR HGB CONC 31.8 g/dL (32.0-36.0); MEAN CORPUSCULAR VOLUME 96.3 fL (79-99); MONOCYTES % (AUTO) 7.9 % (3.0-13.0); NEUTROPHILS % (AUTO) 58.1 % (40.0-77.0); PLATELET COUNT (AUTO) 258 K/uL (130-400); RED BLOOD CELL COUNT(AUTO) 3.76 MIL/uL (4.00-5.50); RED CELL DISTRIBUTION WIDTH 13.9 % (11.0-15.5); WHITE BLOOD COUNT (AUTO) 10.2 K/uL (4.8-10.8)
[2021-07-21 04:21] LABS: ALBUMIN 3.1 g/dL (3.5-5.0); BILIRUBIN,TOTAL 0.3 mg/dL (0.2-1.0); CREATININE 0.6 mg/dL (0.5-1.5); POTASSIUM 3.9 mmol/L (3.5-5.1)
[2021-07-21 07:30] VITALS: BP 114/54
[2021-07-21] MEDS: PANTOPRAZOLE 40 MG/VIAL IVP SCH (09:07)
[2021-07-21 11:00] VITALS: BP 97/45
[2021-07-21 15:43] LABS: HEPATITIS B SURFACE ANTIGEN Non-Reactive (Negative)
[2021-07-21 15:52] LABS: HEPATITIS A IGM ANTIBODY Non-Reactive (Negative); HEPATITIS C ANTIBODY Non-Reactive (NEGATIVE)
[2021-07-21 15:53] LABS: HEPATITIS B CORE IGM ANTIBODY Non-Reactive (Negative)
[2021-07-21 16:00] VITALS: BP 118/53
[2021-07-21] MEDS ORDERED: ONDANSETRON 4MG INJ IVP PRN (18:00)
[2021-07-21] MEDS ORDERED: HYDROMORPHONE 0.5 MG SYG (0.5MG/0.5ML) IVP PRN (18:00)
[2021-07-21] MEDS: HYDROMORPHONE 0.5 MG SYG (0.5MG/0.5ML) IVP PRN (19:30)
[2021-07-21] MEDS: INSULIN HUMULIN R 100 UNIT/ML 3ML SQ SCH (19:30)
[2021-07-21 20:15] VITALS: BP 140/50
[2021-07-21 23:33] VITALS: BP 113/58
[2021-07-22] MEDS: HYDROMORPHONE 0.5 MG SYG (0.5MG/0.5ML) IVP PRN ×3 (01:24→15:38)
[2021-07-22 04:28] VITALS: BP 118/61
[2021-07-22 05:27] LABS: BASOPHILS % (AUTO) 0.9 % (0.0-5.0); HEMATOCRIT 38.3 % (36-48); LYMPHOCYTES % (AUTO) 29.4 % (21.0-51.0); MEAN CORPUSCULAR HGB CONC 32.6 g/dL (32.0-36.0); NEUTROPHILS % (AUTO) 57.5 % (40.0-77.0); PLATELET COUNT (AUTO) 269 K/uL (130-400); RED BLOOD CELL COUNT(AUTO) 4.03 MIL/uL (4.00-5.50); RED CELL DISTRIBUTION WIDTH 13.5 % (11.0-15.5); WHITE BLOOD COUNT (AUTO) 9.6 K/uL (4.8-10.8)
[2021-07-22 05:40] LABS: % IRON SATURATION 22.6 % (22-44)
[2021-07-22 06:00] LABS: HEMOGLOBIN A1C 6.5 % (4.0-6.0)
[2021-07-22 06:05] LABS: ALBUMIN 3.4 g/dL (3.5-5.0); BILIRUBIN,TOTAL 0.3 mg/dL (0.2-1.0); CREATININE 0.6 mg/dL (0.5-1.5); MAGNESIUM 2.2 mg/dL (1.80-2.40); PHOSPHORUS 3.7 mg/dL (2.5-4.9); POTASSIUM 3.9 mmol/L (3.5-5.1); THYROID STIMULATING HORMONE 2.05 uIU/mL (0.36-3.74); TOTAL PROTEIN, SERUM 6.6 g/dL (6.0-8.3)
[2021-07-22 06:51] LABS: ERYTHROCYTE SEDIMENTATION RATE 26 MM/HR (0-30)
[2021-07-22] MEDS: INSULIN HUMULIN R 100 UNIT/ML 3ML SQ SCH ×4 (06:54→21:00)
[2021-07-22 08:00] VITALS: BP 121/67
[2021-07-22] MEDS: METOPROLOL SUCCINATE 50 MG TAB.SR.24H PO SCH (08:37)
[2021-07-22] MEDS: PANTOPRAZOLE 40 MG/VIAL IVP SCH (08:37)
[2021-07-22 12:00] VITALS: BP 120/64
[2021-07-22] MEDS: BISACODYL 10 MG SUPP.RECT RC SCH (12:06)
[2021-07-22] MEDS: LACTULOSE 20 GM/30 ML UDCUP PO SCH (12:06)
[2021-07-22] MEDS ORDERED: LACTULOSE 20 GM/30 ML UDCUP PR SCH (14:30)
[2021-07-22] MEDS ORDERED: MAGNESIUM CITRATE 296 ML SOLUTION PO ONE (15:00)
[2021-07-22 16:00] VITALS: BP 123/69
[2021-07-22] MEDS ORDERED: PEG 3350/NA SULF,BICARB,CL/KCL 4000 ML SOLN PO SCH (16:00)
[2021-07-22 19:58] VITALS: BP 122/73
[2021-07-22] MEDS: BISACODYL 5 MG TABLET.DR PO SCH (21:49)
[2021-07-22 23:28] VITALS: BP 115/64
[2021-07-23] VITALS (16 sets, daily range): BP systolic 107–141; BP diastolic 48–73
[2021-07-23 05:00] LABS: BASOPHILS % (AUTO) 0.6 % (0.0-5.0); EOSINOPHILS % (AUTO) 2.7 % (0.0-8.0); HEMATOCRIT 39.7 % (36-48); LYMPHOCYTES % (AUTO) 19.7 % (21.0-51.0); MEAN CORPUSCULAR HEMOGLOBIN 30.7 pg (27.0-33.0); MONOCYTES % (AUTO) 7.5 % (3.0-13.0); NEUTROPHILS % (AUTO) 69.1 % (40.0-77.0); PLATELET COUNT (AUTO) 267 K/uL (130-400); RED BLOOD CELL COUNT(AUTO) 4.27 MIL/uL (4.00-5.50); RED CELL DISTRIBUTION WIDTH 13.3 % (11.0-15.5); WHITE BLOOD COUNT (AUTO) 10.8 K/uL (4.8-10.8)
[2021-07-23 05:17] LABS: ALBUMIN 3.7 g/dL (3.5-5.0); BILIRUBIN,TOTAL 0.3 mg/dL (0.2-1.0); CREATININE 0.6 mg/dL (0.5-1.5); POTASSIUM 3.8 mmol/L (3.5-5.1)
[2021-07-23] MEDS: INSULIN HUMULIN R 100 UNIT/ML 3ML SQ SCH ×4 (07:30→20:13)
[2021-07-23] MEDS: LUBIPROSTONE 24 MCG CAP PO SCH ×2 (08:00→18:46)
[2021-07-23] MEDS: BISACODYL 5 MG TABLET.DR PO SCH ×2 (08:33→20:19)
[2021-07-23] MEDS: METOPROLOL SUCCINATE 50 MG TAB.SR.24H PO SCH (09:00)
[2021-07-23] MEDS: PANTOPRAZOLE 40 MG/VIAL IVP SCH (09:12)
[2021-07-23] MEDS ORDERED: PROPOFOL 10 MG/ML 20ML VIAL IV ONE (11:04)
[2021-07-23] MEDS ORDERED: LIDOCAINE PF 100MG/5ML (2%) SYRINGE 5ML ONE (11:04)
[2021-07-23] MEDS ORDERED: ATROPINE 1MG SYG IVP ONE (11:23)
[2021-07-23] MEDS: BISACODYL 10 MG SUPP.RECT RC SCH (12:00)
[2021-07-23] MEDS: LACTULOSE 20 GM/30 ML UDCUP PO SCH (12:00)
[2021-07-23] MEDS: HYDROMORPHONE 0.5 MG SYG (0.5MG/0.5ML) IVP PRN (22:47)
[2021-07-24] VITALS (7 sets, daily range): BP systolic 107–129; BP diastolic 56–62
[2021-07-24 04:49] LABS: EOSINOPHILS % (AUTO) 3.2 % (0.0-8.0); HEMATOCRIT 39.5 % (36-48); MEAN CORPUSCULAR HEMOGLOBIN 31.6 pg (27.0-33.0); MEAN CORPUSCULAR HGB CONC 33.2 g/dL (32.0-36.0); MEAN CORPUSCULAR VOLUME 95.2 fL (79-99); MONOCYTES % (AUTO) 9.6 % (3.0-13.0); NEUTROPHILS % (AUTO) 59.8 % (40.0-77.0); PLATELET COUNT (AUTO) 285 K/uL (130-400); RED BLOOD CELL COUNT(AUTO) 4.15 MIL/uL (4.00-5.50); RED CELL DISTRIBUTION WIDTH 13.5 % (11.0-15.5); WHITE BLOOD COUNT (AUTO) 9.7 K/uL (4.8-10.8)
[2021-07-24 05:05] LABS: ALBUMIN 3.6 g/dL (3.5-5.0); BILIRUBIN,TOTAL 0.5 mg/dL (0.2-1.0); CREATININE 0.7 mg/dL (0.5-1.5); POTASSIUM 3.9 mmol/L (3.5-5.1); TOTAL PROTEIN, SERUM 6.9 g/dL (6.0-8.3)
[2021-07-24] MEDS: INSULIN HUMULIN R 100 UNIT/ML 3ML SQ SCH ×4 (06:29→21:00)
[2021-07-24] MEDS: METOPROLOL SUCCINATE 50 MG TAB.SR.24H PO SCH (08:01)
[2021-07-24] MEDS: PANTOPRAZOLE 40 MG TAB DR PO SCH (08:01)
[2021-07-24] MEDS: BISACODYL 5 MG TABLET.DR PO SCH ×2 (08:01→22:31)
[2021-07-24] MEDS: LUBIPROSTONE 24 MCG CAP PO SCH ×2 (08:01→16:35)
[2021-07-24] MEDS: HYDROMORPHONE 0.5 MG SYG (0.5MG/0.5ML) IVP PRN ×2 (08:04→16:36)
[2021-07-24] MEDS: BISACODYL 10 MG SUPP.RECT RC SCH (12:00)
[2021-07-24] MEDS: LACTULOSE 20 GM/30 ML UDCUP PO SCH (12:00)
[2021-07-25] MEDS: HYDROMORPHONE 0.5 MG SYG (0.5MG/0.5ML) IVP PRN ×4 (00:24→21:47)
[2021-07-25 04:10] VITALS: BP 110/56
[2021-07-25 04:43] LABS: EOSINOPHILS % (AUTO) 3.3 % (0.0-8.0); HEMATOCRIT 39.1 % (36-48); LYMPHOCYTES % (AUTO) 26.2 % (21.0-51.0); MEAN CORPUSCULAR HEMOGLOBIN 30.7 pg (27.0-33.0); MEAN CORPUSCULAR HGB CONC 33.2 g/dL (32.0-36.0); MEAN CORPUSCULAR VOLUME 92.2 fL (79-99); MONOCYTES % (AUTO) 8.5 % (3.0-13.0); NEUTROPHILS % (AUTO) 60.8 % (40.0-77.0); PLATELET COUNT (AUTO) 277 K/uL (130-400); RED BLOOD CELL COUNT(AUTO) 4.24 MIL/uL (4.00-5.50); RED CELL DISTRIBUTION WIDTH 13.2 % (11.0-15.5); WHITE BLOOD COUNT (AUTO) 10.8 K/uL (4.8-10.8)
[2021-07-25 04:57] LABS: INR 1.05 (0.85-1.15); PROTHROMBIN TIME 11.4 SEC (9.6-11.6)
[2021-07-25 04:58] LABS: PARTIAL THROMBOPLASTIN TIME 26.2 SEC (26.3-35.5)
[2021-07-25 05:25] LABS: ALBUMIN 3.5 g/dL (3.5-5.0); BILIRUBIN,TOTAL 0.3 mg/dL (0.2-1.0); CREATININE 0.6 mg/dL (0.5-1.5); POTASSIUM 3.5 mmol/L (3.5-5.1); TOTAL PROTEIN, SERUM 6.9 g/dL (6.0-8.3)
[2021-07-25] MEDS: INSULIN HUMULIN R 100 UNIT/ML 3ML SQ SCH ×4 (05:54→20:30)
[2021-07-25 08:00] VITALS: BP 119/64
[2021-07-25] MEDS: LUBIPROSTONE 24 MCG CAP PO SCH ×2 (08:00→17:14)
[2021-07-25] MEDS: PANTOPRAZOLE 40 MG TAB DR PO SCH (08:28)
[2021-07-25] MEDS: BISACODYL 5 MG TABLET.DR PO SCH ×2 (08:28→19:32)
[2021-07-25] MEDS: METOPROLOL SUCCINATE 50 MG TAB.SR.24H PO SCH (09:00)
[2021-07-25] MEDS: LACTULOSE 20 GM/30 ML UDCUP PO SCH (11:31)
[2021-07-25] MEDS: BISACODYL 10 MG SUPP.RECT RC SCH (11:31)
[2021-07-25 12:00] VITALS: BP 108/54
[2021-07-25] MEDS ORDERED: MIDAZOLAM HCL 1 MG/ML 2ML VIAL ONE (14:07)
[2021-07-25] MEDS ORDERED: FENTANYL CITRATE PF 50 MCG/1 ML 2ML VIAL ONE (14:07)
[2021-07-25 16:00] VITALS: BP 113/58
[2021-07-25] MEDS ORDERED: LIDOCAINE HCL 400MG/20ML VIAL ONE (16:45)
[2021-07-25 20:03] VITALS: BP 124/72
[2021-07-25 23:27] VITALS: BP 104/54
[2021-07-26 04:18] VITALS: BP 102/45
[2021-07-26] MEDS: INSULIN HUMULIN R 100 UNIT/ML 3ML SQ SCH (05:04)
[2021-07-26 07:05] VITALS: BP 119/67
[2021-07-26] MEDS: LUBIPROSTONE 24 MCG CAP PO SCH ×2 (08:00→08:22)
[2021-07-26] MEDS: METOPROLOL SUCCINATE 50 MG TAB.SR.24H PO SCH ×2 (08:22→08:30)
[2021-07-26] MEDS: PANTOPRAZOLE 40 MG TAB DR PO SCH (08:22)
[2021-07-26] MEDS: BISACODYL 5 MG TABLET.DR PO SCH (08:23)
== END 2021-07-26 10:06 | disposition home or self-care (01) | DRG 437 ==
LOC: EDH 13:46 → EDHIP 18:02 → 3CH 21:43
PROVIDERS: ADMIT Internal Medicine; ATTEND Internal Medicine
PROC: 0DB38ZX Excision of Lower Esophagus, Via Natural or Artificial Opening Endoscopic, Diagnostic (ICD-10-PCS; 2021-07-23)
PROC: 0DB68ZX Excision of Stomach, Via Natural or Artificial Opening Endoscopic, Diagnostic (ICD-10-PCS; 2021-07-23)
PROC: 0DJD8ZZ Inspection of Lower Intestinal Tract, Via Natural or Artificial Opening Endoscopic (ICD-10-PCS; 2021-07-23)
PROC: 0FB13ZX Excision of Right Lobe Liver, Percutaneous Approach, Diagnostic (ICD-10-PCS; principal; 2021-07-25)
DX: C78.7 Secondary malignant neoplasm of liver and intrahepatic bile duct (principal); K21.00 Gastro-esophageal reflux disease with esophagitis, without bleeding; K44.9 Diaphragmatic hernia without obstruction or gangrene; Z20.822 Contact with and (suspected) exposure to COVID-19; Z80.51 Family history of malignant neoplasm of kidney; K59.00 Constipation, unspecified; Z90.710 Acquired absence of both cervix and uterus; E11.9 Type 2 diabetes mellitus without complications; Z83.3 Family history of diabetes mellitus; D64.9 Anemia, unspecified; Z90.49 Acquired absence of other specified parts of digestive tract; I10 Essential (primary) hypertension; K64.0 First degree hemorrhoids; K29.00 Acute gastritis without bleeding; K22.2 Esophageal obstruction
CPT/HCPCS: 36415; 43239; 45378; 47000; 74177; 76705; 76942; 80053; 80074; 81001; 82105; 82378; 82607; 82728; 82746; 82948; 83036; 83540; 83550; 83615; 83690; 83735; 84100; 84145; 84443; 85025; 85045; 85610; 85651; 85730; 86140; 86300; 86316; 86677; 87635; 88305; 88342; A4606; C9113; G0378; J0461; J1170; J2001; J2250; J2270; J2405; J2704; J3010; J3490; J7030; Q9967

== ENCOUNTER 2023-05-26 14:52 | Emergency (ER) | payer OTHER, MEDICARE ==
[~2023-05-26] VITALS: Ht 167.6 cm; Wt 68.0 kg
[~2023-05-26 14:52] MED LIST changes: -CEPH500B PO; +METF-446 PO; -METO-408 PO; -ORPH-43 PO; +ORPH100T4 PO
[2023-05-26 15:19] LABS: BASOPHILS # (AUTO) 0.05 K/uL (0.00-0.20); BASOPHILS % (AUTO) 0.8 % (0.0-5.0); EOSINOPHILS # (AUTO) 0.17 K/uL (0.00-0.70); EOSINOPHILS % (AUTO) 2.6 % (0.0-8.0); HEMATOCRIT 41.8 % (36-48); IMMATURE GRANULOCYTE ABSOLUTE 0.02 K/uL (0-1); LYMPHOCYTES # (AUTO) 2.3 K/uL (1.0-4.8); LYMPHOCYTES % (AUTO) 35.8 % (21.0-51.0); MEAN CORPUSCULAR HEMOGLOBIN 30.8 pg (27.0-33.0); MEAN CORPUSCULAR HGB CONC 33.3 g/dL (32.0-36.0); MEAN CORPUSCULAR VOLUME 92.7 fL (79-99); MONOCYTES # (AUTO) 0.5 K/uL (0.1-1.0); MONOCYTES % (AUTO) 7.4 % (3.0-13.0); NEUTROPHILS # (AUTO) 3.4 K/uL (1.8-7.7); NEUTROPHILS % (AUTO) 53.1 % (40.0-77.0); PLATELET COUNT (AUTO) 227 K/uL (130-400); RED BLOOD CELL COUNT(AUTO) 4.51 MIL/uL (4.00-5.50); RED CELL DISTRIBUTION WIDTH 14.7 % (11.0-15.5); WHITE BLOOD COUNT (AUTO) 6.5 K/uL (4.8-10.8)
[2023-05-26 15:32] LABS: CREATININE 0.6 mg/dL (0.5-1.5); POTASSIUM 3.8 mmol/L (3.5-5.1)
[2023-05-26 15:37] LABS: ALBUMIN 3.9 g/dL (3.5-5.0); BILIRUBIN,TOTAL 0.3 mg/dL (0.2-1.0); TOTAL PROTEIN, SERUM 7.3 g/dL (6.0-8.3)
[2023-05-26] MEDS ORDERED: ONDANSETRON 4MG INJ ONE (20:56)
[2023-05-26] MEDS ORDERED: MORPHINE 4 MG SYG ONE (20:56)
[2023-05-26] MEDS ORDERED: IOHEXOL 350 MG/ML 100ML INFUS..BTL IV ONE (20:57)
[2023-05-26] MEDS: MORPHINE 4 MG SYG IVP ONE (21:06)
[2023-05-26] MEDS: ONDANSETRON 4MG INJ IVP ONE (21:06)
[2023-05-26] MEDS ORDERED: ONDA4TAB10 PO (21:55)
[2023-05-26] MEDS ORDERED: DICY20TA2 PO (21:55)
[2023-05-26] MEDS ORDERED: FAMO-136 PO (21:55)
[2023-05-26 22:09] VITALS: BP 112/64; PULSE 82; RESP 16; O2SAT 100
== END 2023-05-26 22:10 | disposition home or self-care (01) ==
LOC: EDH 14:52
DX: R10.84 Generalized abdominal pain (principal); K57.30 Diverticulosis of large intestine without perforation or abscess without bleeding; K52.9 Noninfective gastroenteritis and colitis, unspecified; E11.9 Type 2 diabetes mellitus without complications; I10 Essential (primary) hypertension; F17.200 Nicotine dependence, unspecified, uncomplicated; Z79.82 Long term (current) use of aspirin; Z90.49 Acquired absence of other specified parts of digestive tract; Z90.710 Acquired absence of both cervix and uterus; Z85.07 Personal history of malignant neoplasm of pancreas
CPT/HCPCS: 99285; 74177; 96374; 71045; 96375; 80053; 83690; 85025; 36415; 93005; J2405; J2270; Q9967

== ENCOUNTER 2024-07-04 08:53 | Emergency (ER) | payer OTHER, MEDICARE ==
[~2024-07-04] VITALS: Ht 167.6 cm; Wt 71.7 kg
[~2024-07-04 08:53] MED LIST changes: +DICY20TA2 PO; +FAMO-136 PO; +ONDA-243 PO
--- NOTE | 2024-07-04 09:07 | NUR ---
PT JUST NOW PLACED IN ED BED 11
--- NOTE | 2024-07-04 09:35 | NUR ---
PT TAKEN TO CT SCAN
--- NOTE | 2024-07-04 09:50 | NUR ---
PT JUST RETURNED FROM CT SCAN
--- NOTE | 2024-07-04 09:56 | HMCIMG ---
Exam Type: CT ABDOMEN/PELVIS W/O CONTRAST Clinical Information: lower abd pain Comparison: None CT Dose Index (CTDI): 10.20 mGy Dose Length Product (DLP): 530.00 total mGy-cm PROTOCOL: Routine noncontrast helical scanning of the abdomen and pelvis was performed at 5mm collimation. Findings: No evidence of nephro or ureterolithiasis is found. No hydronephrosis or ureteral dilatation is seen. The lung bases are clear. The stomach is unremarkable. It shows no wall thickening. No gross ulceration is seen. It is not overly distended. There are no surrounding inflammatory changes. No wall lesions are identified to suggest cancer. The spleen is unremarkable. It is not enlarged. The pancreas shows normal anatomy. It is not fatty replaced. It shows no lesions. The pancreatic duct is not dilated. The gallbladder is surgically absent. The adrenal glands are unremarkable. There is no enlargement. No lesions are noted. The liver shows a low-density lesion of the right lobe posterior aspect measuring 5 cm. Patient has known history of cancer and therefore this may represent a metastatic lesion. The appendix is unremarkable. It shows no evidence of inflammation. No appendicolith is seen. The small bowel is unremarkable. There is no evidence of dilatation to suggest obstruction. No evidence of adynamic ileus is seen. There is no small bowel wall thickening to suggest enteritis. The colon is unremarkable. The urinary bladder is unremarkable. There is no wall thickening to suggest tumor or inflammation. There are no intraluminal calculi. There are no diverticula. There is no evidence of chronic bladder outlet obstruction. There is no evidence of urinary bladder distention to suggest urinary retention. The other pelvic structures are unremarkable. Postoperative changes of the lumbosacral junction are seen. IMPRESSION: Possible metastatic lesion of the right liver lobe. This study was performed using dose reduction techniques to include automated exposure control and/or adjustment of the mA and/or kV according to patient size.
--- NOTE | 2024-07-04 10:11 | ERN ---
General Chief Complaint: Abdominal Pain Stated Complaint: LOWER ABD PAIN Time Seen by MD: 08:58 Source: patient History of Present Illness Initial Comments PATIENT IS A 64-YEAR-OLD FEMALE COMING IN WITH THE ABDOMINAL PAIN. PER PATIENT SHE HAS A CHRONIC ABDOMINAL PAIN SECONDARY TO PANCREATIC CANCER. PATIENT STATES THAT SHE THOUGHT SHE HAD SOMETHING IN HER RECTUM AND DECIDED TO SEEK HELP. NO FEVER NO CHILLS NAUSEA OR VOMITING. Allergies: Coded Allergies: moxifloxacin (Unverified Allergy, Unknown, 03/20/19) Home Meds Active Scripts Ondansetron (Ondansetron Odt) 4 Mg Tab.rapdis, 4 MG PO TIDP PRN for NAUSEA/VOMITING, #12 TAB 0 Refills Prov:RAMA ANDREW [facility] 05/26/23 Dicyclomine HCl (Bentyl) 20 Mg Tab, 20 MG PO TIDP PRN for ABDOMINAL PAIN, #12 TAB 0 Refills Prov:RAMA ANDREW [facility] 05/26/23 Famotidine (Pepcid) 20 Mg Tablet, 20 MG PO BID, #14 TAB 0 Refills Prov:RAMA ANDREW [facility] 05/26/23 Ibuprofen (Ibuprofen 800 mg Tab) 800 Mg Tab, 800 MG PO Q6H PRN for PAIN LEVEL 6 TO 10 for 7 Days, #30 TAB Prov:ARLET DIEZ MD 02/06/21 Aspirin (ASPIRIN 81MG CHEW TAB) 81 Mg Tab.chew, 81 MG PO DAILY, #30 TAB.CHEW 0 Refills Prov:ANNA MARIE GOVEA AGPCNP 01/27/21 Reported Medications Metformin HCl (Metformin HCl) 500 Mg Tablet, 500 MG PO ACDINNER, TAB 07/20/21 Metformin HCl (Metformin HCl) 1,000 Mg Tablet, 1000 MG PO ACBKFST, TAB 07/20/21 Orphenadrine Citrate (Orphenadrine Citrate) 100 Mg Tablet.er, 100 MG PO BID, TAB 08/24/20 Past Medical History Past Medical History: Cancer, Diabetes-Type II, Hypertension Medical History Other: SPINAL STENOSIS , HX OF PANCREATIC CA Past Surgical History: Hysterectomy, Tonsillectomy, Cholecystectomy, BTL, C- Section Surgical History Other: R SHOULDER , BACK SX Social History Social History: Smokers, Other Female( History) History: Not Applicable ROS Dictation CONSTITUTIONAL: NO CHILLS, NO FEVER, NO WEAKNESS, NO DIAPHORESIS, NO MALAISE. HEAD/FACE: NO SIGNS OF TRAUMA. EENT: NO EYE PAIN, NO BLURRED VISION, NO TEARING, NO DOUBLE VISION, NO EAR PAIN, NO EAR DISCHARGE, NO NOSE PAIN, NO NASAL CONGESTION, NO THROAT PAIN, NO THROAT SWELLING, NO MOUTH PAIN. RESPIRATORY: NO COUGH, NO ORTHOPNEA, NO SOB, NO STRIDOR, NO WHEEZING. CARDIOVASCULAR: NO CHEST PAIN, NO EDEMA, NO PALPITATIONS, NO SYNCOPE. GASTROINTESTINAL/ABDOMINAL: ABDOMINAL PAIN, NO CONSTIPATION, NO DIARRHEA, NO NAUSEA, NO VOMITING. GENITOURINARY: NO ABNORMAL DISCHARGE, NO DYSURIA, NO FREQUENT URINATION, NO HEMATURIA. NO COMPLAINTS OF PAIN IN THE GENITALS. MUSCULOSKELETAL: NO BACK PAIN, NO GOUT, NO JOINT PAIN, NO JOINT SWELLING, NO MUSCLE PAIN, NO MUSCLE STIFFNESS, NO NECK PAIN. INTEGUMENTARY: NO CHANGE IN COLOR, NO CHANGE IN HAIR/NAILS, NO DRYNESS, NO LESION, NO LUMPS, NO RASH. NEUROLOGICAL/PSYCH: NO ANXIETY, NOT DEPRESSED, NO EMOTIONAL PROBLEM, NO HEADACHE, NO NUMBNESS, NO PRE-EXISTING DEFICIT, NO HISTORY OF SEIZURES, NO TREMORS, NO WEAKNESS. HEMATOLOGIC/LYMPHATIC: NOT ANEMIC, NO HISTORY OF BLOOD CLOTS, NO APPARENT BLEEDING, NO BRUISING, GLANDS NOT SWOLLEN. ALL SYSTEMS NEGATIVE, EXCEPT NOTED. Physical Exam Physical Exam Dictation VITAL SIGNS: REVIEWED. GENERAL APPEARANCE: ALERT, ORIENTED X3, NO ACUTE DISTRESS, OBESE. HEAD AND FACE: NON-TRAUMATIC. EYES: PERRL, PINK CONJUNCTIVAS, EYELID NO TRAUMA, ANTERIOR CHAMBER CLEAR. EARS: PINNAS INTACT AND NO SIGNS OF TRAUMA OR ERYTHEMA. EAR CANALS CLEAR AND NO DISCHARGE. TMS NO ERYTHEMA. NOSE: NO DISCHARGE, NO BLEEDING. OROPHARYNX: MOUTH NORMAL, TEETH NO CARIES, TONGUE PINK. PHARYNX CLEAR, NO ERYTHEMA. TONSILS NO EXUDATES, NO ABSCESSES NOTED. MUCOUS MEMBRANE MOIST. NECK: SUPPLE, NON-TENDER, NO THYROMEGALY, NO MASSES, NO JVD, NO BRUITS. BREAST: DEFERRED. CHEST: NO TENDERNESS, NO CREPITUS, NO PARADOXICAL MOVEMENT, NO RETRACTIONS. LUNGS: CLEAR, WELL-VENTILATED, SYMMETRIC, NO RALES, NO WHEEZING, NO RHONCHI, NO STRIDOR, GOOD BREATH SOUNDS BILATERALLY. HEART: REGULAR RATE, REGULAR RHYTHM, NO MURMUR, NO GALLOPS. VASCULAR: NO PERIPHERAL EDEMA. ABDOMEN: SOFT, POSITIVE BOWEL SOUNDS, NONDISTENDED, NO GUARDING, TENDER, NO REBOUND, NO MASSES NO HEPATOMEGALY, NO SPLENOMEGALY, NO NEGRO'S SIGN, NO HERNIAS. RECTAL: DEFERRED. GENITAL: DEFERRED. NEUROLOGICAL: NORMAL SPEECH, GROSS MOTOR FUNCTION INTACT, GROSS SENSORY FUNCTION INTACT. MUSCULOSKELETAL: NECK NONTENDER, FULL RANGE OF MOTION, BACK NONTENDER, FULL RANGE OF MOTION. EXTREMITIES: NONTENDER, FULL RANGE OF MOTION. SKIN: COLOR PINK, DRY, NO TURGOR, NO RASH, NO LACERATIONS, NO ABRASIONS, NO CONTUSIONS. LYMPHATICS: DEFERRED. Results Laboratory and Microbiology Labs Reviewed?: Yes EKG/XRAY/US/CT/MRI CT Scan Comment [place] [id number] [address] IMAGING REPORT Signed PATIENT: DENIS BUTTERFIELD MR#: [id number] : 1960 SEX: F AGE: 64 LOCATION: [facility] ORDER 2 STATUS: [facility] REPORT#: [id number] SERVICE 1 REASON: lower abd pain ORDERING PHYSICIAN: MAMTA ROSARIO MD PROCEDURE: ABD PEL WO - CT ABDOMEN/PELVIS W/O CONTRAST Exam Type: CT ABDOMEN/PELVIS W/O CONTRAST Clinical Information: lower abd pain Comparison: None CT Dose Index (CTDI): 10.20 mGy Dose Length Product (DLP): 530.00 total mGy-cm PROTOCOL: Routine noncontrast helical scanning of the abdomen and pelvis was performed at 5mm collimation. Findings: No evidence of nephro or ureterolithiasis is found. No hydronephrosis or ureteral dilatation is seen. The lung bases are clear. The stomach is unremarkable. It shows no wall thickening. No gross ulceration is seen. It is not overly distended. There are no surrounding inflammatory changes. No wall lesions are identified to suggest cancer. The spleen is unremarkable. It is not enlarged. The pancreas shows normal anatomy. It is not fatty replaced. It shows no lesions. The pancreatic duct is not dilated. The gallbladder is surgically absent. The adrenal glands are unremarkable. There is no enlargement. No lesions are noted. The liver shows a low-density lesion of the right lobe posterior aspect measuring 5 cm. Patient has known history of cancer and therefore this may represent a metastatic lesion. The appendix is unremarkable. It shows no evidence of inflammation. No appendicolith is seen. The small bowel is unremarkable. There is no evidence of dilatation to suggest obstruction. No evidence of adynamic ileus is seen. There is no small bowel wall thickening to suggest enteritis. The colon is unremarkable. The urinary bladder is unremarkable. There is no wall thickening to suggest tumor or inflammation. There are no intraluminal calculi. There are no diverticula. There is no evidence of chronic bladder outlet obstruction. There is no evidence of urinary bladder distention to suggest urinary retention. The other pelvic structures are unremarkable. Postoperative changes of the lumbosacral junction are seen. IMPRESSION: Possible metastatic lesion of the right liver lobe. This study was performed using dose reduction techniques to include automated exposure control and/or adjustment of the mA and/or kV according to patient size. DICTATED BY: BRYSON VALENTINE MD DATE: 07/04/2451 ELECTRONICALLY SIGNED BY: BRYSON VALENTINE MD DATE: 07/04/2456 [facility] MDM: DIFFERENTIAL DIAGNOSIS: HISTORY OF PANCREATIC CANCER WITH METASTASIS. CHRONIC ABDOMINAL PAIN. DRUG-SEEKING BEHAVIOR. PATIENT IS A 64-YEAR-OLD FEMALE WITH A HISTORY OF PANCREATIC CANCER COMING IN TO BE EVALUATED FOR INCREASING ABDOMINAL PAIN. PATIENT STATES THAT HER ONCOLOGIST TOLD HER TO SEEK IMMEDIATE HELP FOR PAIN MANAGEMENT SECONDARY TO HER PANCREATIC CANCER. CT DID NOT DISCLOSE ANY NEW LESIONS. PATIENT WILL BE DISCHARGED IN STABLE CONDITION WITH DIAGNOSIS OF PANCREATIC CANCER AND DRUG-SEEKING BEHAVIOR. PATIENT RECEIVED 15 MG OF MORPHINE VIA EMS THROUGHOUT ER VISIT PATIENT HAS BEEN STABLE. ED Course Orders Procedure Category Date Status Time Ct Abdomen/Pelvis W/O CT 07/04/24 Resulted Contrast 09:02 Vital Signs Date Time Temp Pulse Resp B/P (MAP) Pulse Ox O2 Delivery O2 Flow Rate FiO2 07/04/24 09:10 98.4 78 18 117/53 99 Room Air* 0 21 07/04/24 08:57 99.0 72 17 100/47 95 Room Air 0 DX & DISP Disposition: Discharge Departure Impression: Primary Impression: Abdominal pain Additional Impressions: History of pancreatic cancer, Drug-seeking behavior Condition: Stable Additional Instructions: FOLLOW-UP WITH PRIMARY CARE PROVIDER IN 1 TO 2 DAYS. TAKE MEDICATIONS DIRECTED HERE IN THE EMERGENCY ROOM. OKAY TO CONTINUE HOME MEDICATIONS UNLESS OTHERWISE DISCUSSED DURING YOUR VISIT IN THE EMERGENCY ROOM TODAY. RETURN TO YOUR NEAREST EMERGENCY ROOM IF SYMPTOMS WORSEN OR IF THERE IS NO IMPROVEMENT. CALL 911 IF YOU NEED IMMEDIATE ASSISTANCE. TAKE TYLENOL [id number] NEEDED AND IF NO CONTRAINDICATIONS ARE PRESENT. INCREASE ORAL HYDRATION. A WOUND CULTURE OR URINE CULTURE WAS ORDERED HERE IN THE EMERGENCY ROOM DEPARTMENT PLEASE FOLLOW-UP WITH PRIMARY CARE PROVIDER AND ADVISE THEM TO GET REPEAT PORTS FROM OUR FACILITY. IF YOU HAD ANY MICKEY WRAP/SPLINTS THAT WERE APPLIED HERE, PLEASE DO NOT REMOVE THEM UNTIL YOU SEE YOUR PRIMARY CARE OR SPECIALTY. REFERRALS: Referrals: RAYMON REGAN MD (PCP) Time of Disposition: 10:23 MAMTA ROSARIO MD Jul 04, 2024 10:11
[2024-07-04 10:33] VITALS: BP 121/74; PULSE 80; RESP 17; TEMP 97.8; O2SAT 95
== END 2024-07-04 10:47 | disposition home or self-care (01) ==
LOC: EDH 08:53
DX: R10.30 Lower abdominal pain, unspecified (principal); C25.9 Malignant neoplasm of pancreas, unspecified; E11.9 Type 2 diabetes mellitus without complications; F17.200 Nicotine dependence, unspecified, uncomplicated; I10 Essential (primary) hypertension; Z79.82 Long term (current) use of aspirin; Z90.49 Acquired absence of other specified parts of digestive tract; Z90.710 Acquired absence of both cervix and uterus; Z76.5 Malingerer [conscious simulation]
CPT/HCPCS: 74176; 99284